=== PATIENT | female | born 1980 | race African-American/Black ===

== ENCOUNTER 2017-02-11 11:26 | Emergency (ER) | payer OTHER ==
[~2017-02-11] VITALS: Ht 165.1 cm; Wt 111.8 kg
[~2017-02-11 11:26] MED LIST: ALPR0.255 PO; AMLO-511 PO; HYDR25TA PO; LISI-661 PO
[2017-02-11] MEDS ORDERED: ASPI-556 PO (11:45)
[2017-02-11 14:19] VITALS: BP 128/72
== END 2017-02-11 14:21 | disposition home or self-care (01) ==
LOC: EMS 11:27
DX: S92.514A Nondisplaced fracture of proximal phalanx of right lesser toe(s), initial encounter for closed fracture (principal); I10 Essential (primary) hypertension; G43.909 Migraine, unspecified, not intractable, without status migrainosus; F17.210 Nicotine dependence, cigarettes, uncomplicated; Z88.5 Allergy status to narcotic agent; Z88.0 Allergy status to penicillin; Z88.8 Allergy status to other drugs, medicaments and biological substances; Z91.041 Radiographic dye allergy status; Z91.040 Latex allergy status; W01.0XXA Fall on same level from slipping, tripping and stumbling without subsequent striking against object, initial encounter; Y93.89 Activity, other specified; Y92.89 Other specified places as the place of occurrence of the external cause; Y99.8 Other external cause status
CPT/HCPCS: 99284